=== PATIENT | male | born 1945 | race Caucasian/White ===

== ENCOUNTER 2017-03-09 12:31 | Day surgery (SDC) | payer MEDICARE, BC ==
[~2017-03-09 12:31] MED LIST: CIPROFLOXACIN LACTATE/D5W 400 MG/200 ML BAG IV PRN; KETOROLAC TROMETHAMINE 15 MG/ML VIAL IV PRN; METOCLOPRAMIDE HCL 5 MG/ML VIAL IV PRN; MORPHINE SULFATE 2 MG/ML DISP.SYRIN IV PRN; NORMAL SALINE 1,000 ML IV PRN; ONDANSETRON HCL/PF 2 MG/ML VIAL IV PRN; oxyCODONE HCL/ACETAMINOPHEN 1 TAB TABLET PO PRN
--- OUTSIDE RECORDS SUMMARY | 2017-03-09 12:35 | XMS REPORT | Continuity of Care Document ---
:1945 Author Organization [facility] ([facility]) [place] [address] Phone [phone] Care Team Providers Name Role Phone Unavailable Primary Care Provider Unavailable Source Comments This disclosure is being made pursuant to the Care Everywhere program, applicable federal and state laws, and may not contain all informaitonavailable regarding this patient.[facility] ([facility]) Active Allergies and Adverse Reactions Not on File Current Medications Not on file Active Problems Not on file Social History Tobacco Use Types Packs/Day Years Used Date Never Assessed Plan of Care Health Maintenance Due Date Last Done Comments HCV Screening 1945 Hepatitis B Vaccine (1 of 3 - Primary Series) 1945 Tdap Vaccine 1956 Lipid Disorder Screening 1963 Td Vaccine 1963 Colonoscopy 1995 Prostate Cancer Screening 1995 Zoster Vaccine 2005 Pneumococcal Vaccine (1 of 2 - PCV13) 2010 Influenza Vaccine: Seasonal (#1) 06/21/2016 Results from Last 3 Months Not on file
--- NOTE | 2017-03-09 14:33 | OR ---
Operative Report - Dictated Report Narrative: Location: Main OR Anesthesia: General Preoperative diagnosis: right stone(s) Postoperative diagnosis: same Procedure: #1 Right ESWL #2 Cystoscopy with Right 6x26 double J stent placement Indications: stone Procedure: Consent obtained. Risks discussed. Brought to the operating room where general endotracheal anesthesia was induced. Timeout taken per protocol. Fluoroscopy was used to localize the stones in 2 planes. A total of 2500 shocks were delivered at a maximal energy of 24 kV. Stone was easily visible at the beginning of the case. There was radiographic evidence of fragmentation at the conclusion of the case. Patient was repositioned, prepped and draped. Scope introduced navigated to the bladder. Ureter identified guidewire introduced under fluoroscopic guidance and stent deployed. EBL: 0 cc Specimen: None Condition: Patient tolerated Important findings: Follow Up: Location: Main OR Anesthesia: General Preoperative diagnosis: Left renal stone(s) Postoperative diagnosis: same Procedure: #1 left ESWL Indications: 71-year-old male several left renal stones increasing in size. Patient elected to proceed with ESWL without stent after discussion of options. KUB did show stones. Procedure: Consent obtained. Risks discussed. Brought to the operating room where general endotracheal anesthesia was induced. Timeout taken per protocol. Fluoroscopy was used to localize the stones in 2 planes. A total of 3000 shocks were delivered at a maximal energy of 24 kV. 900 shocks delivered to lower pole stone with very good radiographic evidence of fragmentation, 600 to the upper pole stone again with good evidence of radiographic fragmentation, remaining 1500 shocks were delivered to the larger of the 2 stones in between which was the most dense and took the longest to show radiographic evidence of fragmentation. There still was some visible stone post procedure that much different compared to preprocedure. Per my discussion with the patient did not replace stent. EBL: 0 cc Specimen: None Condition: Patient tolerated Important findings: Successful treatment of 3 possibly for stones Follow Up: I will see him in 4 months with KUB/UA. Obviously we'll see him sooner if trouble
[2017-03-09 16:04] VITALS: BP 157/80
== END 2017-03-09 12:32 | disposition home or self-care (01) ==
LOC: AMB 12:31
PROVIDERS: ATTEND Urology
PROC: 0TF4XZZ Fragmentation in Left Kidney Pelvis, External Approach (ICD-10-PCS; principal; 2017-03-09 13:45)
DX: N20.0 Calculus of kidney (principal); N40.1 Benign prostatic hyperplasia with lower urinary tract symptoms; Z68.27 Body mass index [BMI] 27.0-27.9, adult

== ENCOUNTER 2017-08-04 07:45 | Day surgery (SDC) | payer MEDICARE, BC ==
[2017-08-04] MEDS ORDERED: RINGER'S SOLUTION,LACTATED 1,000 ML IV ONE ×3 (08:15→10:05)
[2017-08-04] MEDS ORDERED: PANTOPRAZOLE SODIUM 40 MG in NORMAL SALINE 100 ML IV ONE (09:25)
[2017-08-04] MEDS ORDERED: RINGER'S SOLUTION,LACTATED 1,000 ML IV PRN (09:25)
[2017-08-04] MEDS ORDERED: PANTOPRAZOLE SODIUM 40 MG/100 ML PIGGYBACK IV ONE (10:00)
[2017-08-04 10:22] VITALS: BP 127/65
--- NOTE | 2017-08-04 12:01 | OR ---
Operative Report - Dictated Report Narrative: Operative Report Date of operation: 08/04/2017 Preoperative diagnosis: GERD symptoms despite medication Postoperative diagnosis: Esophagitis. Large amount of saliva in the stomach. Gastropathy (pathology and CLOtest pending) Operation: EGD with biopsies Surgeon: Dr Gasca Anesthesia: AZUL AU CRNA Indications for procedure: The patient is a 71-year-old male referred by Dr. Kendrick. The patient has a 4-6 week history of increasing GERD symptoms despite medication Findings: Normal esophagus. GE junction inflammation. Large amount of swallowed saliva in the stomach. Gastropathy. Normal duodenum Narrative of procedure: The patient was identified preoperatively, and prior to the administration of anesthetic a multidisciplinary timeout was observed With the patient in the recumbent position, a bite-block was placed, intravenous sedation administered, and the patient's eyes covered with a towel. The flexible fiberoptic gastroscope was advanced into the posterior pharynx which appeared normal. The supraglottic larynx appeared normal. The cords appeared normal, moved well, and opposed in the midline. The scope was advanced under direct vision into the proximal esophagus which appeared normal. There was a lot of swallowed saliva in the esophagus. The esophagus appeared freely distensible with normal mucosa. The esophageal mucosa appeared normal down to the gastroesophageal junction which was sharp . There was mild inflammation of the junctional mucosa. The GE junction appeared normally distensible. The scope was advanced into the stomach which was insufflated with air. There were a large amount of secretions in the stomach compatible with swallow saliva. There was mild zaragoza gastric erythema but no zeina ulcers or neoplastic lesions were appreciated including a retroflexed view of the gastric fundus. The scope was redirected toward the pylorus. The pylorus appeared patent. The scope was advanced into the duodenal bulb which appeared normal. The scope was advanced further to the horizontal portion of the duodenum which appeared normal, specifically the villous architecture appeared well preserved and clear bile was present. The scope was slowly withdrawn through the duodenal bulb with confirmation that no active ulcer was present. The scope was withdrawn into the stomach and sales promotion representative biopsies of gastric mucosa obtained for CLOtest and pathology. The biopsy sites were seen to be hemostatic. The insufflated air was removed from the stomach and the scope withdrawn to above the GE junction which was biopsied. The biopsy sites were seen to be hemostatic. The scope was withdrawn from the patient, and the procedure terminated. The patient tolerated the anesthetic and procedure well without complication and was transferred back to the ambulatory surgery area awake and in stable condition. The patient remained stable throughout a period of postoperative observation, was able to tolerate po intake, and was up without assistance. I shared the operative findings with him and his , and he was given copies of the photographs which appear in the medical record. He was given a single dose of Protonix 40 mg IV prior to discharge. He was discharged home with instructions not to engage in hazardous activity today, but may return to normal activity tomorrow and advance diet as tolerated. He is to continue medications as listed in the history and physical exam. I made arrangements to contact the patient with the biopsy reports and will make further recommendation based upon that result. It was recommended that the patient not take Aleve for the time being. Reviewed and electronically signed
== END 2017-08-04 07:46 | disposition home or self-care (01) ==
LOC: AMB 07:45
PROVIDERS: ATTEND Surgery
PROC: 0DB68ZX Excision of Stomach, Via Natural or Artificial Opening Endoscopic, Diagnostic (ICD-10-PCS; 2017-08-04)
PROC: 0DB48ZX Excision of Esophagogastric Junction, Via Natural or Artificial Opening Endoscopic, Diagnostic (ICD-10-PCS; principal; 2017-08-04 09:30)
DX: K20.9 Esophagitis, unspecified (principal); K29.70 Gastritis, unspecified, without bleeding; I10 Essential (primary) hypertension; J44.9 Chronic obstructive pulmonary disease, unspecified; Z68.27 Body mass index [BMI] 27.0-27.9, adult; Z87.891 Personal history of nicotine dependence